=== PATIENT | female | born 1930 | race Caucasian/White ===

== ENCOUNTER 2018-06-09 13:22 | Day surgery (SDC) | payer MEDICARE ==
[~2018-06-09 13:22] MED LIST: Acetaminophen TAB* 325 MG PO PRN; Buffered Lidocaine 0.9% SYRIN* 5 ML/SYR SYRINGE INTRADERM ONE; Lidocaine 1%* 5 ML VIAL ONE; Lidocaine 2% EPI 1:200000 MPF*10-20 ML VIAL ONE; Neomycin/Polymy/Dex OPTH.SUSP* MAXITROL 0.1% 5 ML ONE; Povidone Iodine 5% OPTH* 30 ML BTL ONE; Proparacaine 0.5% OPHTH.SOL* 15 ML BTL ONE; mitoMYcin PWD* 0.2 MG in Sterile Water for Inj* 1 ML OPHTHALMIC SCH
[2018-06-09] MEDS ORDERED: Midazolam* 1 MG/ML 2 ML VIAL (2 MG) ONE ×2 (15:18→15:59)
[2018-06-09 16:13] VITALS: BP 138/48
--- NOTE | 2018-06-10 13:53 | OP ---
DATE OF OPERATION: 06/09/18 [facility] DATE OF : 32 SURGEON: Evan Muniz MD ANESTHESIA: Local with MAC. PRE-OP DIAGNOSIS: Open angle glaucoma, left eye. POST-OP DIAGNOSIS: Open angle glaucoma, left eye. OPERATIVE PROCEDURE: Insertion of Xen gel stent, left eye. COMPLICATIONS: None. DESCRIPTION OF PROCEDURE: The patient was given 2% lidocaine with epinephrine. Lid speculum was placed. Paracentesis made at the 1 o'clock position. Anterior chamber irrigated with 1% non-preservative intracameral lidocaine and filled with Healon. 1.8-mm clear corneal incision made at the 5 o'clock position. Mitomycin-C 0.2 mg/mL 0.1 mL injected subconjunctivally in the superior fornix. The Xen implant placed at the 11 o'clock position without difficulty subconjunctival and then the anterior chamber was irrigated with balanced salt solution and the wound was checked and found to be watertight. Maxitrol drops given at the end of the surgery. [id number] #: [id number] MTDD
== END 2018-06-09 16:16 | disposition home or self-care (01) ==
LOC: OREAST 13:22
PROVIDERS: ATTEND Specialist
DX: H40.1123 Primary open-angle glaucoma, left eye, severe stage (principal); H40.1111 Primary open-angle glaucoma, right eye, mild stage; I10 Essential (primary) hypertension; R73.01 Impaired fasting glucose; M19.90 Unspecified osteoarthritis, unspecified site
CPT/HCPCS: A9270-GY; C1725; J2250; J9280